=== PATIENT | male | born 1940 | race Two or more races ===

== ENCOUNTER 2020-03-18 17:04 | Emergency (ER) | payer BC, MEDICARE, OTHER ==
[~2020-03-18 17:04] MED LIST: ASPIRIN81 MG ORAL; AVODART0.5 MG ORAL; CRESTOR10 M2 ORAL; FISH OIL500 MG PO; NEXIUM40 MG ORAL; VITAMIN B-122000 MC1 IM; VITAMIN D400 INTLU ORAL
[2020-03-18] MEDS ORDERED: CYCLOBENZAPRINE5 MG ORAL (19:12)
[2020-03-18] MEDS ORDERED: IBUPROFEN600 M1 ORAL (19:12)
== END 2020-03-18 19:26 | disposition home or self-care (01) ==
DX: S09.90XA Unspecified injury of head, initial encounter (principal); S16.1XXA Strain of muscle, fascia and tendon at neck level, initial encounter; S39.012A Strain of muscle, fascia and tendon of lower back, initial encounter; V43.52XA Car driver injured in collision with other type car in traffic accident, initial encounter; Y92.410 Unspecified street and highway as the place of occurrence of the external cause; Z79.82 Long term (current) use of aspirin; M40.50 Lordosis, unspecified, site unspecified; M85.80 Other specified disorders of bone density and structure, unspecified site